=== PATIENT | female | born 1990 | race Caucasian/White ===

== ENCOUNTER 2017-12-29 18:00 | Emergency (ER) | payer MEDICAID ==
[~2017-12-29] VITALS: Ht 162.6 cm; Wt 58.1 kg
[2017-12-29 18:05] VITALS: Ht 162.6 cm; Wt 58.1 kg
[2017-12-29 19:46] LABS: microscopic required? YES; urine erythrocyte 3+ (NEGATIVE)
[2017-12-29 20:07] VITALS: BP 107/70
== END 2017-12-29 20:07 | disposition home or self-care (01) ==
LOC: ED 18:00
PROVIDERS: Emergency Medicine
DX: N39.0 Urinary tract infection, site not specified (principal)